=== PATIENT | female | born 1960 | race African-American/Black ===

== ENCOUNTER 2017-05-19 16:56 | Emergency (ER) | payer SELFPAY ==
[~2017-05-19] VITALS: Ht 154.9 cm; Wt 97.0 kg
[~2017-05-19 16:56] MED LIST: ALPR.5 PO; IBUP800T23 PO; NAPR500T PO; PLAV75TA29 PO; [UNRECOGNIZED DRUG - CODE] PO; [UNRECOGNIZED DRUG - REMARK] PO; daflon PO
[2017-05-19 17:01] VITALS: BP 188/87; PULSE 85; RESP 18; TEMP 99.2; O2SAT 100
--- NOTE | 2017-05-19 17:31 | PD ---
HPI Chief Complaint: Pain: Acute or Chronic Time Seen by Provider: 17:30 Travel History International Travel<30 days: No Contact w/Intl Traveler<30days: No Traveled to known affect area: No History of Present Illness HPI 57 YO F presents to the ED for evaluation of 1 week history of dysuria, urinary urgency. She denies fever, chills, nausea, vomiting, abdominal pain, flank pain , back pain, vaginal discharge. She also complains of a 3 month history of ankle pain, right greater than left. Pain is worsened with ambulation, especially the first few steps of the day. She had an x-ray of the right ankle a few months ago that "didn't show anything." She treated with ibuprofen with no improvement of symptoms. PFSH Past Medical History Hx Anticoagulant Therapy: Yes (asa) Asthma: Yes Cardiovascular Problems: Yes (htn) High Cholesterol: Yes Diminished Hearing: No Hypertension: Yes Respiratory: Yes (asthma) Immunizations Current: No Menopausal: Yes : 3 Para: 3 Tubal Ligation: Yes Past Surgical History Appendectomy: Yes Gynecologic Surgery: Yes (HYST) Hysterectomy: Yes Other Surgery: Yes (RIGHT SHOULDER "LUMP OF FAT REMOVED") Social History Alcohol Use: No Tobacco Use: No Substance Use: No Allergies-Medications (Allergen,Severity, Reaction): Coded Allergies: penicillin G (Unverified Allergy, Unknown, 05/19/17) Reported Meds & Prescriptions Reported Meds & Active Scripts Active Pyridium (Phenazopyridine HCl) 100 Mg Tab 100 Mg PO Q8H PRN Macrobid (Nitrofurantoin Monoh/Nitrofur Macro) 100 Mg Cap 100 Mg PO BID 7 Days Ibuprofen 800 Mg Tab 800 Mg PO TID Reported Plavix (Clopidogrel Bisulfate) 75 Mg Tab 75 Mg PO DAILY [Gap Pills] 15 Tab PO DAILY Exforge Hct (Aaxmyaxcxl-Tudpjpcyg-Dbyakdehdvnxxisikpk) 10-320-25 Mg Tab 1 Tab PO DAILY Naproxen 500 Mg Tab 500 Mg PO BID PRN Xanax (Alprazolam) 0.5 Mg Tab 0.5 Mg PO Q6HR PRN [daflon] 500 Mg PO BID Review of Systems Except as stated in HPI: all other systems reviewed are Neg Physical Exam Narrative GENERAL: Well-nourished, well-developed pleasant, obese black female in no acute distress. SKIN: Focused skin assessment warm/dry. HEAD: Normocephalic. EYES: No scleral icterus. No injection or drainage. NECK: Supple, trachea midline. No JVD or lymphadenopathy. CARDIOVASCULAR: Regular rate and rhythm without murmurs, gallops, or rubs. RESPIRATORY: Breath sounds equal bilaterally. No accessory muscle use. GASTROINTESTINAL: Abdomen soft, nondistended. Mild suprapubic tenderness. No palpable masses. Active bowel sounds. MUSCULOSKELETAL: No cyanosis, or edema. 2+ DP pulses bilaterally. Homans sign negative bilaterally. Mild tenderness to palpation just posterior to the medial malleolus on the right ankle. Patient retains full, active, painless ROM bilateral ankles and feet. Neurovascularly intact. BACK: Nontender without obvious deformity. No CVA tenderness. Data Data Last Documented VS Vital Signs Date Time Temp Pulse Resp B/P (MAP) Pulse Ox O2 Delivery O2 Flow Rate FiO2 05/19/17 18:48 91 17 186/89 (121) 98 05/19/17 17:47 98.0 Room Air Orders Orders Urinalysis - C+S If Indicated (05/19/17 17:30) Nitrofurantoin Monohyd Macrocr (Macrobid (05/19/17 18:30) Labs Laboratory Tests Test 05/19/17 18:00 Urine Color LIGHT-YELLOW Urine Turbidity CLEAR Urine pH 5.5 Urine Specific [place] 1.010 Urine Protein NEG mg/dL Urine Glucose (UA) NEG mg/dL Urine Ketones NEG mg/dL Urine Occult Blood NEG Urine Nitrite NEG Urine Bilirubin NEG Urine Urobilinogen LESS THAN 2.0 MG/DL Urine Leukocyte Esterase NEG Urine RBC LESS THAN 1 /hpf Urine WBC LESS THAN 1 /hpf Urine Bacteria RARE /hpf Urine Mucus FEW /lpf Microscopic Urinalysis Comment CULT NOT INDICATED MDM Medical Decision Making Medical Screen Exam Complete: Yes Emergency Medical Condition: Yes Differential Diagnosis Cystitis versus pyelonephritis versus STI versus osteoarthritis versus plantar fasciitis versus other Narrative Course 57 YO F presents to the ED for evaluation of 1 week history of dysuria, urinary urgency. She denies fever, chills, nausea, vomiting, abdominal pain, flank pain , back pain, vaginal discharge. She also complains of a 3 month history of ankle pain, right greater than left. Pain is worsened with ambulation, especially the first few steps of the day. Vitals reviewed. Patient is hypertensive on presentation, states that she has not taken her medications today. Physical exam reveals a black female in no acute distress. There is mild suprapubic tenderness but the abdominal exam is otherwise unremarkable. No CVA tenderness. Additionally she has some tenderness just posterior to the medial malleolus on the right ankle. Homans sign negative bilaterally. Patient retains full, active, painless ROM of bilateral feet and ankles. Neurovascularly intact. The patient had an x-ray at the last visit and revealed no acute bony injury. She denies any recent trauma. I suspect this is osteoarthritis, possibly plantar fasciitis with a history of pain with the first few steps. UA shows rare bacteria. Patient's prescribed Macrobid 100 mg twice a day 7 days. First dose administered in the ED. She is instructed to follow-up with the product development coordinator, Dr. Ramos for further evaluation of her ankle pain. She is stable and discharged home. Diagnosis Primary Impression: Urinary tract infection Qualified Codes: N39.0 - Urinary tract infection, site not specified Additional Impression: Bilateral ankle joint pain Referrals: Bandar Ramos DPM Patient Instructions: General Instructions, Osteoarthritis (ED), Urinary Tract Infection in Women (ED) Additional Instructions: Rest, hydrate. Take all antibiotics as they're prescribed, even if your symptoms resolved. Pyridium is an anesthetic that works to reduce bladder spasm due to UTI. Pyridium will turn your urine bright orange, this is an expected side effect. Continue with NSAIDs as needed for ankle pain. Follow-up with the product development coordinator Dr. Ramos this week. Return to the ED for any urgent or emergent medical condition. Med/Other Pt SpecificInfo: Prescription(s) given Scripts Phenazopyridine (Pyridium) 100 Mg Tab 100 MG PO Q8H Y for DYSURIA, #6 TAB 0 Refills Prov: Дмитрий Mijares MD 05/19/17 Nitrofurantoin Monohydrate Macrocrystals (Macrobid) 100 Mg Cap 100 MG PO BID for Infection for 7 Days, #14 CAP 0 Refills Prov: Дмитрий Mijares MD 05/19/17 Disposition: 01 DISCHARGE HOME Condition: Stable [place] Du May 19, 2017 17:31
[2017-05-19 17:47] VITALS: BP 189/92; PULSE 81; RESP 19; TEMP 98; O2SAT 99
[2017-05-19 18:13] LABS: BACTERIA, URINE RARE /hpf; BLOOD, URINE NEG (NEG); COMMENT (UR) CULT NOT INDICATED; CULTURE IF INDICATED CULT NOT INDICATED; GLUCOSE,URINE NEG (NEG); KETONE, URINE NEG (NEG); MUCUS URINE FEW /lpf (OCC); NITRITE,URINE NEG (NEG); PH, URINE 5.5 (5.0-8.5); URINE COLOR LIGHT-YELLOW (YELLW/STRAW)
[2017-05-19] MEDS ORDERED: PHEN0.4T PO (18:21)
[2017-05-19] MEDS ORDERED: MACR100C2 PO (18:21)
[2017-05-19] MEDS ORDERED: NITROFURANTOIN MONOHYD MACROCR 100 MG CAP PO ONE (18:30)
[2017-05-19 18:48] VITALS: BP 186/89
== END 2017-05-19 18:49 | disposition home or self-care (01) ==
LOC: NEPD 16:56
DX: N39.0 Urinary tract infection, site not specified (principal); M25.572 Pain in left ankle and joints of left foot; M25.571 Pain in right ankle and joints of right foot
CPT/HCPCS: 81001; 99284